=== PATIENT | female | born 1980 | race Caucasian/White ===

== ENCOUNTER → 2018-06-28 | Outpatient (CLI) | payer OTHER ==
--- NOTE | 2018-06-28 10:24 | Diagnostic Imaging Report ---
EXAM: US ABDOMEN COMPLETE DATE: 06/28/2018 9:31 AM Time stamp on exam: INDICATION: Elevated liver function tests COMPARISON: None TECHNIQUE: Transverse and longitudinal kelly scale and color doppler sonographic images of the upper abdomen were obtained. FINDINGS: LIVER 15.8 cm in the right midclavicular line. Normal echogenicity, normal contour, no masses. SPLEEN 10.2 cm in maximum diameter. Punctate calcified granuloma. Normal echogenicity, no masses. GALLBLADDER Multiple small, mobile shadowing echogenic calculi are noted. No wall thickening or pericholecystic fluid. Negative sonographic Bruce's sign. BILE DUCTS No intra nor extra-hepatic biliary dilation. Common bile duct measures 0.2 cm PANCREAS: Visualized portions are normal. RIGHT KIDNEY: 10.3 cm Echogenicity: Normal Collecting System: No hydronephrosis Stones: None Cyst/Mass: None LEFT KIDNEY: 10.4 cm Echogenicity: Normal Collecting System: No hydronephrosis Stones: None Cyst/Mass: None VESSELS: Aorta: Nonaneurysmal. Inferior Vena Cava: Visualized portions are normal Main Portal Vein: 0.9 cm, normal size with hepatopetal flow. FREE FLUID: None IMPRESSION: Cholelithiasis without sonographic evidence of acute cholecystitis. Signed by: Dr. Jaziel Lindsay M.D. on 06/28/2018 10:21 AM
== END ==
LOC: US 09:10
PROVIDERS: ATTEND Internal Medicine Gastroenterology
DX: R74.8 Abnormal levels of other serum enzymes (principal); R10.10 Upper abdominal pain, unspecified
CPT/HCPCS: 76700

== ENCOUNTER → 2018-06-30 | Day surgery (SDC) | payer OTHER ==
[~2018-06-30] MED LIST: FENTANYL CITRATE/PF 100MCG/2 ML INJ ONE; LIDOCAINE HCL 2% LOCAL INJ 5 ML SDV VIAL INJ ONE; PROPOFOL IV EMULSION 10 MG/ML 50 ML VIAL ONE
--- OUTSIDE RECORDS SUMMARY | 2018-06-30 10:18 | XMS REPORT ---
[facility] Address Unknown Phone Unavailable Care Team Providers Care Teacher Of Gifted Students Name Role Phone ANKIT HILARIO Unavailable Unavailable Problems This patient has no known problems. Allergies, Adverse Reactions, Alerts This patient has no known allergies or adverse reactions. Medications This patient has no known medications. Results Test Description Test Time Test Comments Text Results Atomic Results Result Comments US ABDOMEN COMPLETE 2018-06-28 10:17:00 [place] [address] Patient Name: HAFSA MONTELONGO MR #: [id number] : 1980 Age/Sex: 37/F Req #: [id number] Adm Physician: Ordered by: ANKIT HILARIO MD Report #: [id number] Location: US Room/Bed: Procedure: [id number] US/US ABDOMEN COMPLETE Exam Date: 06/28/18 Exam Time: 0939 REPORT STATUS: Signed EXAM: US ABDOMEN COMPLETE DATE: 06/28/2018 9:31 AM Time stamp on exam: INDICATION: Elevated liver function tests COMPARISON: None TECHNIQUE: Transverse and longitudinal kelly scale and color doppler sonographic images of the upper abdomen were obtained. FINDINGS: LIVER 15.8 cm in the right midclavicular line. Normal echogenicity, normal contour, no masses. SPLEEN 10.2 cm in maximum diameter. Punctate calcified granuloma. Normal echogenicity, no masses. GALLBLADDER Multiple small, mobile shadowing echogenic calculi are noted. No wall thickening or pericholecystic fluid. Negative sonographic Bruce's sign. BILE DUCTS No intra nor extra-hepatic biliary dilation. Common bile duct measures 0.2 cm PANCREAS: Visualized portions are normal. RIGHT KIDNEY: 10.3 cm Echogenicity: Normal Collecting System: No hydronephrosis Stones: None Cyst/Mass: None LEFT KIDNEY: 10.4 cm Echogenicity: Normal Collecting System: No hydronephrosis Stones: None Cyst/Mass: None V ESSELS: Aorta: Nonaneurysmal. Inferior Vena Cava: Visualized portions are normal Main Portal Vein: 0.9 cm, normal size with hepatopetal flow. FREE FLUID: None IMPRESSION: Cholelithiasis without sonographic evidence of acute cholecystitis. Signed by: Dr. Devon Estrada M.D. on 06/28/2018 10:21 AM Dictated By: DEVON ESTRADA MD 1021 Transcribed By: WILLI on 06/28/18 1021 COPY TO: ANKIT HILARIO MD
--- OUTSIDE RECORDS SUMMARY | 2018-06-30 10:18 | XMS REPORT | Clinical Summary ---
Author Author [facility] Address Unknown Phone Unavailable Care Team Providers Care Sole Polisher Name Role Phone System, Provider Not In MD PCP Unavailable Allergies No Known Allergies Medications Not on file Active Problems Not on file Encounters Care Team Description Date Type Specialty 06/08/2018 Emergency Emergency Medicine after 06/29/2017 Social History Date Tobacco Use Types Packs/Day Years Used Never Assessed Sex Assigned at Date Recorded Not on file Industry Job Start Date Occupation Not on file Not on file Not on file Travel End Travel History Travel Start No recent travel history available. Last Filed Vital Signs Time Taken Vital Sign Reading 06/08/2018 4:18 PM CDT Blood Pressure 105/67 06/08/2018 4:18 PM CDT Pulse 66 06/08/2018 4:18 PM CDT Temperature 36.6 C (97.9 F) 06/08/2018 4:18 PM CDT Respiratory Rate 15 06/08/2018 4:18 PM CDT Oxygen Saturation 100% - Inhaled Oxygen - Concentration 06/08/2018 4:16 PM CDT Weight 66.7 kg (147 lb) 06/08/2018 4:16 PM CDT Height 157.5 cm (5' 2") 06/08/2018 4:16 PM CDT Body Mass Index 26.89 Plan of Treatment Not on file Results Not on fileafter 06/29/2017 Insurance Payer Benefit Subscriber ID Type Phone Address Plan / Group [facility] xxxxxxxxx HMO/PPO THCARE CHOICE/CHO ICE + Advance Directives Patient has advance care planning documents on file. For more information, nancy thornton contact: Ang Ko [address] [place] [id number]
--- OUTSIDE RECORDS SUMMARY | 2018-06-30 10:18 | XMS REPORT ---
Author Organization Unknown Address [address] [place] [address] Phone [phone] Care Team Providers Care Plow Holder Name Role Phone Willie Reed Unavailable Unavailable Allergies Code Code System Name Reaction Severity Status Onset NKDA Medications Name Status Start Date Stop Date amoxicillin 875 mg-potassium clavulanate 125 mg tablet Completed 06/08/2017 benzonatate 100 mg capsule Completed 06/08/2017 Notes: No medications reported by patient on 06/08/2017 Problems No Known Problems Procedures Notes: Patient indicated no previous surgeries on (06/08/2017) Lab Results None recorded. Past Encounters 06/08/2017 Adult Health Examination; Amenorrhea; Microscopic Hematuria; Body Mass Index 40+ - Severely Obese Willie Wilson MD: [id number] [place] [address], Ph. Social History Smoking Status Former Smoker (1 PPW) Vaccine List Notes: none Plan of Care Reminders Provider Appointments None recorded. Lab None recorded. Referral None recorded. Procedures None recorded. Surgeries None recorded. Imaging None recorded. Vitals Height Weight BMI Blood Pressure 5 ft 1.6 in 221 lbs 40.9 kg/m2 102/76 mm[Hg]
--- OUTSIDE RECORDS SUMMARY | 2018-06-30 10:18 | XMS REPORT | Encounter Summary ---
Author Organization Unknown Address [address] [place] [address] Phone [phone] Care Team Providers Care High Voltage Electrician Name Role Phone Dr. Keegan Venegas 3 [phone] Keegan Venegas MD 3 [phone] Reason for Visit Bilateral low back pain; other - see typed reason Instructions 1. Low back pain urinalysis, dipstick 2. Hypothyroidism TSH, serum or plasma 3. Malaise and fatigue CMP, serum or plasma CBC w/ auto diff 4. Blood in urine culture, urine ciprofloxacin 500 mg tablet 5. Right flank pain 6. History of bariatric surgical procedure 7. Gastritis Discussion Note If you do not hear from us in 1 week after the labs are done ,pl call us for results f/u in 3 mths /prn Patient educational handouts: No information available. Plan of Care Reminders Provider Appointments None recorded. Lab Urinalysis, Dipstick 06/09/2018 [facility] TSH, Serum or Plasma 06/09/2018 [facility] CMP, Serum or Plasma 06/09/2018 [facility] CBC W/ Auto Diff 06/09/2018 [facility] Culture, Urine 06/09/2018 [facility] Referral None recorded. Procedures None recorded. Surgeries None recorded. Imaging None recorded. Medications Name Start Date ciprofloxacin 500 mg tablet Take 1 tablet every 12 hours by oral route after meals for 7 days. levothyroxine 50 mcg tablet TAKE 1 TABLET BY MOUTH EVERY DAY Medications Administered None recorded. Vitals Height Weight BMI Blood Pressure 5 ft 1.6 in 151 lbs 28 kg/m2 118/84 mm[Hg] Lab Results Date Name Specimen Result Interpretation Description Value Range Status Address 06/09/2018 Urinalysis, Dipstick Color Color yellow [facility]) Hobby: [address], [place] Color Appearance clear [facility]) Hobby: [address], [place] Color Glucose negative [facility] Hobby: [address], [place] Color Bilirubin small [facility] Hobby: [address], [place] Color Ketones small [facility] ([facility]) Hobby: [address], [place] Color Specific [place] 1.030 [facility] ([facility]) Hobby: [address], [place] Color Blood trace [facility] Hobby: [address], [place] Color PH 6.5 [facility] ([facility]) Hobby: [address], [place] Color Protein trace [facility] ([facility] Hobby: [address], [place] Color Urobilinogen 0.2 [facility] ([facility]) Hobby: [address], [place] Color Nitrites negative [facility] ([facility] Hobby: [address], [place] Color Leukocytes negative [facility] ([facility]) Hobby: [address], [place] Allergies Code Code System Name Reaction Severity Status Onset NKDA Problems Name Status Onset Date Source Gastritis Active 06/10/2018 Hypothyroidism Active Procedures Date Name Performed by 08/05/2017 Gastrointestinal Surgery Information not available 02/28/2014 Tubal Ligation Information not available Vaccine List Vaccine Type Tdap 05/29/2014 Social History Smoking Status Former Smoker (1 PPW) Past Encounters 06/09/2018 Low Back Pain; Hypothyroidism; Malaise and Fatigue; Blood in Urine; Right Flank Pain; History of Bariatric Surgical Procedure; Gastritis Rom Fonseca MD: [address] [facility], [place] [address], Ph. History of Present Illness Note:Here because she has concerns because she has rT lower Back pain & radiates to rt abd - occured 1 mth ago , lasted 7 mins , sits on floor & in cradle position & resolves , occured at work yesterday lasting 30 mins & amp; went to er - & her friend told don't do tests as she will help - she will get u/s & x ray done tomorrow & will let us know. No h/o kidney stones <div>LMP - April . also c/o burning in vaginal area not when voiding , urine darker , NOT MUCH WATER intake to work . no fever or chills , no visible blood in urine </div><div>No constipation , no diarrhea, no hair loss , no mood changes , no weight gain or loss, no palpaitation ,no cold intolerance</div> Review of Systems:ROS as noted in the HPI Review of Systems None recorded. Physical Exam General Adult Exam (Female), Low Back Pain Reported By: Patient Constitutional: General Appearance: well-developed; bmi -28. Level of Distress: NAD. Ambulation: ambulating normally Psychiatric: Insight: good judgement. Mental Status: active and alert, normal mood, normal affect. Orientation: to time, to place, to person Head: Head: normocephalic, atraumatic Eyes: Lids and Conjunctivae: non-injected, no discharge, no pallor. Pupils: PERRLA. Corneas: grossly intact. EOM: EOMI. Lens: clear. Sclerae: non-icteric ENMT: Ears: no lesions on external ear, EACs clear, TMs clear. Hearing: no hearing loss. Nose: no lesions on external nose, nares patent, no septal deviation, nasal passages clear, no sinus tenderness, no nasal discharge. Lips, Teeth, and Gums: no mouth or lip ulcers, no bleeding gums, normal dentition. Oropharynx: moist mucous membranes, no erythema, no exudates, tonsils not enlarged Neck: Neck: supple, trachea midline, no masses, FROM. Lymph Nodes: no cervical LAD, no supraclavicular LAD, no axillary LAD. Thyroid: no enlargement, non- tender, no nodules Lungs: Respiratory effort: no dyspnea. Auscultation: breath sounds normal, good air movement, CTA except as noted, no wheezing, no rales/crackles, no rhonchi Cardiovascular: Heart Auscultation: RRR, normal S1, normal S2, no murmurs, no rubs, no gallops Abdomen: Bowel Sounds: normal. Inspection and Palpation: soft, no tenderness, no guarding, no rebound tenderness, no masses, no CVA tenderness; mild epigastric discomfort. Liver: non-tender, no hepatomegaly Musculoskeletal:: Motor Strength and Tone: normal motor strength, normal tone. Joints, Bones, and Muscles: normal movement of all extremities, no bony abnormalities, no contractures, no malalignment, no tenderness. Extremities: no cyanosis, no edema, no varicosities Neurologic: Gait and Station: normal gait, normal station. Cranial Nerves: grossly intact. Sensation: grossly intact Skin: Inspection and palpation: no rash, no lesions, no abnormal nevi, good turgor, no jaundice. Nails: normal Back: Thoracolumbar Appearance: normal curvature
[2018-06-30 14:10] VITALS: BP 96/71
--- NOTE | 2018-06-30 20:24 | Operative Report ---
DATE OF PROCEDURE: 06/30/2018 SURGEON: Jaen Carlos Marie MD PROCEDURE: Esophagogastroduodenoscopy with biopsies. INDICATION FOR EGD: Heartburn, bloating. MEDICATION: The patient was done under MAC, please see anesthesiologist's note. PROCEDURE IN DETAIL: With the patient in left lateral decubitus position, a flexible fiberoptic Olympus gastroscope was introduced into the esophagus under direct visualization without any difficulty. Erosions were noted in the distal esophagus without active bleeding or stigmata of recent hemorrhage. The scope was then advanced with ease into the stomach traversing a small hiatal hernia. The patient appears to be status post gastric sleeve. Mucosa overlying the antrum and the body revealed some diffuse erythema and low-grade to moderate edema and biopsies were obtained and sent to stain for H pylori. An approximately 6 mm polyp was noted in the antrum, which probably reflects postoperative change. It was biopsied. The pylorus was intubated with ease and the scope was advanced all the way to the second portion of the duodenum. The scope was then withdrawn slowly, mucosa overlying the proximal second portion and the duodenal bulb appeared to be within normal limits. Biopsies were obtained to rule out sprue. The scope was then withdrawn back into the stomach and retroflexed and the previously described hiatal hernia was noted in addition to postoperative changes. The scope was then straightened out, it was subsequently withdrawn and the patient tolerated the procedure well. IMPRESSION: 1. Erosive esophagitis. 2. Hiatal hernia. 3. Gastritis, biopsied. Biopsies sent to stain for Helicobacter pylori. 4. Status post gastric sleeve. 5. Rule out sprue. PLAN: Follow up histology. Initiate Protonix 40 mg one p.o. q.a.m. before meals. The patient will need a HIDA scan with ejection fraction considering her history of gallstones and elevated liver enzymes. Jean Carlos Marie MD [facility] [place] /[id number] cc: Keegan Venegas MD
== END | disposition home or self-care (01) ==
LOC: OR 10:12
PROVIDERS: ATTEND Internal Medicine Gastroenterology
DX: K29.70 Gastritis, unspecified, without bleeding (principal); K31.7 Polyp of stomach and duodenum; K22.10 Ulcer of esophagus without bleeding; K44.9 Diaphragmatic hernia without obstruction or gangrene; K21.9 Gastro-esophageal reflux disease without esophagitis; Z98.84 Bariatric surgery status; R74.8 Abnormal levels of other serum enzymes; F17.210 Nicotine dependence, cigarettes, uncomplicated
CPT/HCPCS: 43239; 81025; J2001; J2704